=== PATIENT | male | born 1995 | race Caucasian/White ===

== ENCOUNTER 2018-11-20 20:44 | Emergency (ER) | payer OTHER ==
[~2018-11-20] VITALS: Ht 175.3 cm; Wt 65.8 kg
[2018-11-20] MEDS ORDERED: IV NS 0.9% 1,000 ML BAG IV ONE ×2 (21:00→21:30)
[2018-11-20] MEDS ORDERED: ONDANSETRON HCL/PF 4 MG/2 ML VIAL IVP ONE ×2 (21:00→21:30)
[2018-11-20] MEDS ORDERED: ONDANSETRON HCL/PF 4 MG/2 ML VIAL ONE (21:01)
--- NOTE | 2018-11-20 21:03 | NUR ---
BIBGIRLFRIEND FROM HOME C/O ABD PAIN X 6 HOURS WITH NAUSEA. DENIES VOMITING AND DIARRHEA. WAS VERY PALE IN TRIAGE ROOM AND SENT TO BED 5. PAIN LEVEL 8/10. PT IS AOX4, AMB, VSS, RR EVEN AND UNLABORED, ALTHOUGH STATES SOME DIFFICULTY TAKING DEEP BREATHS. PLACED ON 3L NC. DENIES DIZZINESS, WEAKNESS. SKIN INTACT AND NO ACUTE DISTRESS NOTED. GIRLFRIEND AT BEDSIDE. READY FOR EVAL.
[2018-11-20 21:11] LABS: BASOPHILS # (AUTO) 0.1 /CMM (0.0-0.2); BASOPHILS % (AUTO) 0.4 % (0.0-2.0); EOSINOPHILS % (AUTO) 0.6 % (0.0-6.0); HEMATOCRIT 41 % (39-51); LYMPHOCYTES # (AUTO) 0.8 /CMM (0.8-4.8); LYMPHOCYTES % (AUTO) 4.4 % (20.0-44.0); MEAN CORPUSCULAR HGB CONC 34 g/dl (31.0-36.0); MEAN CORPUSCULAR VOLUME 88 fL (80-96); MONOCYTES # (AUTO) 1.5 /CMM (0.1-1.30); MONOCYTES % (AUTO) 8.8 % (2.0-12.0); NEUTROPHILS # (AUTO) 14.6 /CMM (1.8-8.9); NEUTROPHILS % (AUTO) 85.8 % (43.0-81.0); PLATELET COUNT (AUTO) 222 /CMM (150-450); RED BLOOD CELL COUNT(AUTO) 4.62 MIL/uL (4.5-6.0); WHITE BLOOD COUNT (AUTO) 17.1 K/uL (4.3-11.0)
[2018-11-20 21:21] LABS: CALCIUM, SERUM 9.9 mg/dL (8.5-10.1); CREATININE 1.3 mg/dL (0.6-1.3); POTASSIUM 4.1 mmol/L (3.5-5.1)
[2018-11-20] MEDS ORDERED: HYDROMORPHONE INJ 0.5 MG/0.5 ML SYRINGE ONE (21:21)
--- NOTE | 2018-11-20 21:27 | NUR ---
PT TAKEN TO CT VIA VU
[2018-11-20] MEDS ORDERED: HYDROMORPHONE INJ 2 MG/ML DISP.SYRIN IV ONE (21:30)
[2018-11-20 21:32] LABS: ALBUMIN 4.1 g/dL (3.4-5.0); BILIRUBIN,DIRECT 0.2 mg/dL (0.0-0.2); BILIRUBIN,TOTAL 1.1 mg/dL (0.2-1.0); TOTAL PROTEIN, SERUM 7.5 g/dL (6.4-8.2)
--- NOTE | 2018-11-20 21:41 | NUR ---
PT BACK FROM CT. BLANCO WELL. PLACED BACK ON MONITOR AND RECONNECTED TO IVF
[2018-11-20] MEDS ORDERED: PIPERACILLIN /TAZOBACTAM 3.375 G in IV D5W 50 ML IV ONE (22:00)
[2018-11-20] MEDS ORDERED: PIPERACILLIN /TAZOBACTAM 3.375 G VIAL IV ONE (22:01)
[2018-11-20 22:35] LABS: APPEARANCE,URINE SL CLOUDY (CLEAR); BILIRUBIN,URINE NEGATIVE (NEGATIVE); BLOOD, URINE NEGATIVE Ery/uL (NEGATIVE); COLOR,URINE YELLOW (YELLOW); KETONES,URINE NEGATIVE (NEGATIVE); LEUKOCYTE ESTERASE ,URINE NEGATIVE (NEGATIVE); NITRITE, URINE NEGATIVE (NEGATIVE); PH,URINE 7.5 (5.0-8.0); PROTEIN,URINE NEGATIVE (NEGATIVE); UGLUCOSE NEGATIVE (NEGATIVE); UROBILINOGEN,URINE 0.2 EU/dL (0.2)
--- NOTE | 2018-11-20 23:07 | NUR ---
PT RESTING COMFORTABLY WITH GIRLFRIEND. NO COMPLAINTS AT THIS TIME. VSS. WILL CONT TO MONITOR.
[2018-11-20] MEDS ORDERED: MAG HYDROX/AL HYDROX/SIMETH 30 ML UDC ONE (23:44)
[2018-11-20] MEDS ORDERED: LIDOCAINE VISCOUS 2% UD 15 ML UDC ONE (23:44)
[2018-11-21] MEDS ORDERED: MAG HYDROX/AL HYDROX/SIMETH 30 ML UDC PO ONE
[2018-11-21] MEDS ORDERED: LIDOCAINE VISCOUS 2% UD 15 ML UDC MM ONE
[2018-11-21] MEDS ORDERED: SUCRALFATE 1 G/10 ML UDC PO ONE (01:30)
[2018-11-21] MEDS ORDERED: FAMOTIDINE/PF INJ 20 MG/2 ML VIAL IV ONE ×2 (01:30→01:40)
[2018-11-21] MEDS ORDERED: SUCRALFATE 1 G/10 ML UDC ONE (01:39)
--- NOTE | 2018-11-21 02:31 | NUR ---
ASSUMED CARE OF PT FOR D/C PURPOSES ONLY.
[2018-11-21 02:37] VITALS: BP 110/72
== END 2018-11-21 02:38 | disposition home or self-care (01) ==
LOC: ER 20:47
DX: R10.13 Epigastric pain (principal); R73.9 Hyperglycemia, unspecified; F32.9 Major depressive disorder, single episode, unspecified; F41.9 Anxiety disorder, unspecified; F42.8 Other obsessive-compulsive disorder; F95.2 Tourette's disorder; E86.0 Dehydration
CPT/HCPCS: 36415; 71045; 74176; 80048; 80076; 81001; 82962; 83690; 85025; 85730; 93005; 96361; 96365; 96375; 99284; A4606; J2405; J2543 ×2; J3490; J7030 ×2; J7060; Z7610; 81000-TC